=== PATIENT | female | born 2000 | race Caucasian/White ===

== ENCOUNTER 2023-09-23 21:05 | Emergency (ER) | payer SELFPAY ==
[~2023-09-23] VITALS: Ht 157.5 cm; Wt 74.0 kg
[2023-09-23 22:06] VITALS: O2SAT 99
[2023-09-23] MEDS ORDERED: NAPR-681 PO (23:38)
[2023-09-24] MEDS: METOCLOPRAMIDE HCL 10MG/2ML VIAL IM ONE (00:15)
[2023-09-24] MEDS: KETOROLAC 60MG/2ML VIAL IM STA (00:17)
[2023-09-24 00:35] VITALS: BP 149/60; PULSE 62; RESP 16; TEMP 98.5
== END 2023-09-24 00:27 | disposition home or self-care (01) ==
LOC: ER 21:05
DX: R51.9 Headache, unspecified (principal)
CPT/HCPCS: 99284; 81025; 96372; J1885; J2765